=== PATIENT | male | born 1985 | race Caucasian/White ===

== ENCOUNTER 2016-07-22 12:21 | Emergency (ER) | payer OTHER ==
[~2016-07-22] VITALS: Ht 180.3 cm; Wt 109.3 kg
[~2016-07-22 12:21] MED LIST: ONDA4TAB7 SL; PRLSR20 PO
[2016-07-22 12:22] VITALS: Ht 180.3 cm; Wt 109.3 kg
[2016-07-22 13:55] LABS: BASO % 0.7 %; BASO ABS # 0.06 K/uL (0-0.2); COMPLETE YES; IG% 0.1 %; LYMPH % 25.1 %; LYMPH ABS # 2.23 K/uL (1.2-3.4); MEAN CELL VOLUME 89.8 fL (80-100); MEAN CORPUSCULAR HEMOGLOBIN 31.5 pg (25-34); MEAN CORPUSCULAR HGB CONC 35.1 g/dl (32-36); MEAN PLATELET VOLUME 11.1 fL (7.4-10.4); MONO % 6.3 %; NEUT % 66.8 %; PLATELET COUNT 193 K/uL (130-400); RED BLOOD COUNT 5.01 M/uL (4.7-6.1); WHITE BLOOD COUNT 8.87 K/uL (4.8-10.8)
--- NOTE | 2016-07-22 14:00 | EMERGENCY ROOM VISIT NOTE ---
History First contact with patient: 13:17 Chief Complaint: ARM PAIN Stated Complaint: LUMP IN ARM, DIZZY History of Present Illness The patient is a 31 year old male who presents to the Emergency Room with complaints of a lump on his left upper arm. The patient states yesterday, he noticed a lump in the left upper arm which is painful to touch. He states it is also painful to move and he has had numbness in his fingers intermittently. He states that the lump became bigger today. He initially thought it may be a pimple but states it is getting worse. There is no overlying redness or hardness. He rates the discomfort a 6/10. He denies any history of similar symptoms. He denies any past medical history or daily medications. Review of Systems A complete 10 point review of systems was reviewed with the patient with pertinent positives and negatives as per history of present illness. All else were negative. Past Medical/Surgical History Medical Problems: (1) Asthma (2) Bronchitis (3) Cough (4) Flank pain (5) Flu-like symptoms (6) Kidney stone (7) Pneumonia Family History Hypertension Social History Smoking Status: Current Every Day Smoker Alcohol Use: occasionally Drug Use: none Marital Status: single Housing Status: lives with significant other Occupation Status: employed Current/Historical Medications Scheduled Cephalexin Monohydrate (Keflex), 500 MG PO QID Allergies Coded Allergies: Sulfa Drugs (Verified Allergy, Unknown, 06/05/12) Physical Exam Vital Signs Date Time Temp Pulse Resp B/P Pulse Ox O2 Delivery O2 Flow Rate FiO2 07/22/16 16:08 36.8 94 20 127/67 97 07/22/16 16:07 94 20 127/67 97 Room Air 07/22/16 14:06 132/68 07/22/16 12:22 36.8 98 20 128/83 97 Room Air Physical Exam VITALS: Vitals are noted on the nurse's note and reviewed by myself. Vital signs stable. GENERAL: This is a 31-year-old male, in no acute distress, nondiaphoretic, well- developed well-nourished. SKIN: There is a tender, mobile nodule palpated in the left upper arm. HEENT: Normocephalic. PERRLA. EOMI. Nares patent. Mucous membranes moist. Neck is supple without nuchal rigidity or lymphadenopathy. LYMPH: No axillary lymphadenopathy. HEART: Regular rate and rhythm without murmurs gallops or rubs. LUNGS: Clear to auscultation bilaterally without wheezes, rales or rhonchi. NEURO: Patient was alert and oriented to person place and time. Medical Decision & Procedures ER Provider Diagnostic Interpretation: LEFT UPPER EXTREMITY ULTRASOUND CLINICAL HISTORY: Painful left upper arm lump. COMPARISON STUDY: No previous studies for comparison. FINDINGS: Sonography of the left upper arm at site of palpable lump revealed a 1.3 x 1.1 x 0.9 cm lymph node. This contains a fatty hilum. The cortex is mildly thickened. IMPRESSION: Mildly enlarged 1.3 cm left upper arm lymph node which reflects the palpable lump. This lymph node is likely reactive. Laboratory Results 07/22/16 13:35 Red Blood Count 5.01, Mean Corpuscular Volume 89.8, Mean Corpuscular Hemoglobin 31.5, Mean Corpuscular Hemoglobin Concent 35.1, Mean Platelet Volume 11.1, Neutrophils (%) (Auto) 66.8, Lymphocytes (%) (Auto) 25.1, Monocytes (%) (Auto) 6.3, Eosinophils (%) (Auto) 1.0, Basophils (%) (Auto) 0.7, Neutrophils # (Auto) 5.92, Lymphocytes # (Auto) 2.23, Monocytes # (Auto) 0.56, Eosinophils # (Auto) 0.09, Basophils # (Auto) 0.06 07/22/16 13:35 Test 07/22/16 13:35 White Blood Count 8.87 K/uL (4.8-10.8) Red Blood Count 5.01 M/uL (4.7-6.1) Hemoglobin 15.8 g/dL (14.0-18.0) Hematocrit 45.0 % (42-52) Mean Corpuscular Volume 89.8 fL (80-100) Mean Corpuscular Hemoglobin 31.5 pg (25-34) Mean Corpuscular Hemoglobin Concent 35.1 g/dl (32-36) Platelet Count 193 K/uL (130-400) Mean Platelet Volume 11.1 fL (7.4-10.4) Neutrophils (%) (Auto) 66.8 % Lymphocytes (%) (Auto) 25.1 % Monocytes (%) (Auto) 6.3 % Eosinophils (%) (Auto) 1.0 % Basophils (%) (Auto) 0.7 % Neutrophils # (Auto) 5.92 K/uL (1.4-6.5) Lymphocytes # (Auto) 2.23 K/uL (1.2-3.4) Monocytes # (Auto) 0.56 K/uL (0.11-0.59) Eosinophils # (Auto) 0.09 K/uL (0-0.5) Basophils # (Auto) 0.06 K/uL (0-0.2) RDW Standard Deviation 43.9 fL (36.4-46.3) RDW Coefficient of Variation 13.3 % (11.5-14.5) Immature Granulocyte % (Auto) 0.1 % Immature Granulocyte # (Auto) 0.01 K/uL (0.00-0.02) Anion Gap 7.0 mmol/L (3-11) Est Creatinine Clear Calc Drug Dose 173.8 ml/min Estimated GFR () 138.9 Estimated GFR (Non- 119.9 BUN/Creatinine Ratio 15.0 (10-20) Calcium Level 8.6 mg/dl (8.5-10.1) Medical Decision Differential diagnosis includes reactive lymphadenopathy, abscess, lipoma, among others. The patient is a 31-year-old male who presents today complaining of a painful lump of the left arm. Labs revealed no leukocytosis. An ultrasound was performed which showed lymphadenopathy which is likely reactive. The patient was informed of this. He will be placed on a short course of Keflex. Conservative measures were discussed. The patient was instructed to follow-up with a primary care provider for further evaluation. Based on the patient's presentation and work up, I feel the patient is stable for outpatient treatment. The patient was educated to return to the emergency department for any worsening of their current condition or new/concerning symptoms. He will follow up with his PCP. Impression Primary Impression: Lymphadenopathy Departure Information Dispostion Home / Self-Care Condition GOOD Prescriptions Cephalexin Monohydrate (Keflex) 500 Mg Cap 500 MG PO QID for 7 Days, #28 CAP Prov: Heike Elliott .ADRIANA 07/22/16 Referrals No Doctor, Assigned (PCP) Patient Instructions My [facility] Additional Instructions You were prescribed Keflex to be taken 4 times daily as prescribed. This is an antibiotic. All antibiotics have the potential to cause diarrhea. Stop this medication and contact a medical provider if you were to develop any significant adverse side effects including: wheezing, shortness of breath, passing out, vomiting, or a diffuse rash. Always take antibiotics as directed and COMPLETE the ENTIRE course regardless of the improvement of your symptoms. Your ultrasound showed a swollen lymph node of the left arm. You may use warm compresses over the area of pain. For pain control, you can use the following [id number] medicines (if >12 yo): - Regular strength (325mg/tab) Tylenol (acetaminophen) 2 tabs every 4-6 hours as needed. Do not exceed 12 tablets in a 24 hour period. Avoid taking more than 4 grams (4000 mg) of Tylenol per day. This includes any other sources of acetaminophen you may take on a regular basis. - Regular strength (200 mg/tab) Advil (ibuprofen) 1-2 tabs every 4-6 hours as needed. Do not exceed a dose of 3200 mg per day. This may also help with inflammation. Follow-up with her primary care provider within one week. Return to the emergency department with any worsening or new/concerning symptoms.
[2016-07-22 14:11] LABS: CREATININE 0.76 mg/dl (0.60-1.40); POTASSIUM 3.9 mmol/L (3.5-5.1)
[2016-07-22 14:21] LABS: CALCIUM 8.6 mg/dl (8.5-10.1)
--- NOTE | 2016-07-22 15:05 | DIAGNOSTIC IMAGING REPORT ---
LEFT UPPER EXTREMITY ULTRASOUND CLINICAL HISTORY: Painful left upper arm lump. COMPARISON STUDY: No previous studies for comparison. FINDINGS: Sonography of the left upper arm at site of palpable lump revealed a 1.3 x 1.1 x 0.9 cm lymph node. This contains a fatty hilum. The cortex is mildly thickened. IMPRESSION: Mildly enlarged 1.3 cm left upper arm lymph node which reflects the palpable lump. This lymph node is likely reactive. Electronically signed by: Alexei Langley M.D. 07/22/2016 3:04 PM Dictated Date/Time: 07/22/2016 2:58 PM
[2016-07-22] MEDS ORDERED: CEPH500C PO (15:40)
[2016-07-22 16:08] VITALS: BP 127/67; PULSE 94; TEMP 36.8; O2SAT 97
== END 2016-07-22 16:08 | disposition home or self-care (01) ==
LOC: C.EDB 12:22
DX: R59.1 Generalized enlarged lymph nodes (principal); J45.909 Unspecified asthma, uncomplicated; Z87.442 Personal history of urinary calculi; Z87.01 Personal history of pneumonia (recurrent); Z82.49 Family history of ischemic heart disease and other diseases of the circulatory system; F17.210 Nicotine dependence, cigarettes, uncomplicated

== ENCOUNTER 2017-07-09 15:24 | Emergency (ER) | payer BC ==
[~2017-07-09] VITALS: Ht 180.3 cm; Wt 112.5 kg
[2017-07-09 15:29] VITALS: TEMP 37; Ht 180.3 cm; Wt 112.5 kg
[2017-07-09] MEDS ORDERED: SODIUM CHLORIDE 0.9% 1000ML 1,000 ML IV STA (15:39)
[2017-07-09] MEDS ORDERED: PANTOprazole INJ 40 MG in SYRINGE 0 ML IV ONE (15:45)
[2017-07-09] MEDS ORDERED: OPTIRAY 320 IV PRN (15:45)
[2017-07-09 16:09] LABS: BASO % 0.6 %; BASO ABS # 0.05 K/uL (0-0.2); EOS % 2.2 %; EOS ABS # 0.18 K/uL (0-0.5); HEMATOCRIT 44.9 % (42-52); HEMOGLOBIN 16.1 g/dL (14.0-18.0); IG# 0.02 K/uL (0.00-0.02); LYMPH % 36.6 %; LYMPH ABS # 2.93 K/uL (1.2-3.4); MEAN CELL VOLUME 88.6 fL (80-100); MEAN CORPUSCULAR HEMOGLOBIN 31.8 pg (25-34); MEAN CORPUSCULAR HGB CONC 35.9 g/dl (32-36); MEAN PLATELET VOLUME 10.5 fL (7.4-10.4); MONO % 7.7 %; MONO ABS # 0.62 K/uL (0.11-0.59); NEUT % 52.7 %; NEUT ABS # 4.21 K/uL (1.4-6.5); PLATELET COUNT 200 K/uL (130-400); RED CELL DISTRIBUTION WIDTH CV 13.4 % (11.5-14.5); RED CELL DISTRIBUTION WIDTH SD 43.7 fL (36.4-46.3); WHITE BLOOD COUNT 8.01 K/uL (4.8-10.8)
[2017-07-09 16:31] LABS: ALBUMIN 3.7 gm/dl (3.4-5.0); ALKALINE PHOSPHATASE 91 U/L (45-117); ALT/SGPT 38 U/L (12-78); AST/SGOT 20 U/L (15-37); BLOOD UREA NITROGEN 14 mg/dl (7-18); CALCIUM 9.1 mg/dl (8.5-10.1); CARBON DIOXIDE 27 mmol/L (21-32); CREATININE 0.88 mg/dl (0.60-1.40); GLUCOSE 93 mg/dl (70-99); LIPASE 104 U/L (73-393); POTASSIUM 3.9 mmol/L (3.5-5.1); SODIUM 138 mmol/L (136-145); TOTAL PROTEIN 6.9 gm/dl (6.4-8.2)
--- NOTE | 2017-07-09 17:38 | DIAGNOSTIC IMAGING REPORT ---
CT ANGIO ABD/PELVIS WITH CONTRAST HISTORY: VOMITTING BLOOD TECHNIQUE: Multiaxial CT images of the abdomen and pelvis are performed following the use of intravenous contrast to evaluate the major arterial structures. Maximal intensity projection images were also obtained. COMPARISON STUDY: Abdomen and pelvis CT 01/29/2013. FINDINGS: The lung bases are essentially clear. No pneumoperitoneum. No pneumatosis. Tiny fat-containing umbilical hernia is again noted. The liver, gallbladder, spleen, adrenal glands, pancreas, and kidneys are unremarkable. No hydronephrosis. No retroperitoneal lymphadenopathy. The bladder is unremarkable. No bowel wall thickening or obstruction. A few colonic diverticula. Normal appendix. Abdominal aorta, iliac arteries, superior mesenteric artery, and inferior mesenteric artery are patent. The renal arteries are also patent. 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 2. No bowel wall thickening or obstruction. 3. Colonic diverticulosis. 4. Normal appendix. 5. Normal caliber abdominal aorta. 6. Stable tiny fat-containing umbilical hernia. Electronically signed by: Andrea Corado M.D. 07/09/2017 5:37 PM Dictated Date/Time: 07/09/2017 5:30 PM
[2017-07-09 19:07] VITALS: BP 138/92; PULSE 73; O2SAT 98
--- NOTE | 2017-07-09 19:28 | EMERGENCY ROOM VISIT NOTE ---
History Report prepared by Estrada: Jessica Walsh Under the Supervision of: Dr. Albania Howard D.O. First contact with patient: 15:31 Chief Complaint: VOMITING Stated Complaint: VOMITTING BLOOD History of Present Illness The patient is a 32 year old male who presents to the Emergency Room with complaints of persistent hematemesis starting last night. After he finished eating dinner, he started feeling lightheaded. He then vomited and saw that there were clots of red blood. He had a bowel movement today which was bright red. He is concerned that he has an ulcer. His brother has a history of ulcers. He is still feeling lightheaded and nauseous. He has left mid abdominal pain which is chronic for him. He has followed with his PCP for this. He has a history of IBS. He denies any back pain or bloating. He does get heartburn sometimes. He does smoke and admits to occasional alcohol use. He has not had a scope before. He states that he has been more stressed recently. Source of History: patient Onset: last night Position: abdomen Quality: other (hematemesis) Timing: other (persistent) Associated Symptoms: + nausea, + abdominal pain, + hematochezia, No back pain Note: Pt reports lightheadedness. Review of Systems See HPI for pertinent positives & negatives. A total of 10 systems reviewed and were otherwise negative. Past Medical & Surgical Medical Problems: (1) Asthma (2) Bronchitis (3) Cough (4) Flank pain (5) Flu-like symptoms (6) Kidney stone (7) Pneumonia Family History Hypertension Social History Smoking Status: Current Every Day Smoker Alcohol Use: occasionally Drug Use: none Marital Status: single Housing Status: lives with significant other Occupation Status: employed Current/Historical Medications Scheduled Omeprazole (Prilosec), 40 MG PO BID Allergies Coded Allergies: Sulfa Drugs (Verified Allergy, Unknown, 07/09/17) Physical Exam Vital Signs Date Time Temp Pulse Resp B/P (MAP) Pulse Ox O2 Delivery O2 Flow Rate FiO2 07/09/17 19:07 73 16 138/92 98 Room Air 07/09/17 17:36 73 20 150/89 99 Room Air 07/09/17 16:20 70 20 131/80 97 Room Air 07/09/17 15:29 37.0 95 20 149/106 96 Room Air Physical Exam GENERAL: alert, well appearing, well nourished, no distress, non-toxic EYE EXAM: normal conjunctiva, PERRL and EOM's grossly intact OROPHARYNX: no exudate, no erythema, lips, buccal mucosa, and tongue normal and mucous membranes are dry NECK: supple, no nuchal rigidity, no adenopathy, non-tender LUNGS: Clear to auscultation. Normal chest wall mechanics HEART: no murmurs, S1 normal and S2 normal ABDOMEN: abdomen soft, mild left mid abdominal tenderness to palpation, normo- active bowel sounds, no masses, no rebound or guarding. BACK: Back is symmetrical on inspection and there is no deformity, no midline tenderness, no CVA tenderness. RECTAL: Hemorrhoids. No obvious bleeding. No stool in rectal vault. Heme positive. SKIN: no rashes and no bruising UPPER EXTREMITIES: upper extremities are grossly normal. LOWER EXTREMITIES: No pitting edema. NEURO EXAM: Normal sensorium, cranial nerves II-XII grossly intact, normal speech, no gross weakness of arms, no gross weakness of legs. Medical Decision & Procedures ER Provider Diagnostic Interpretation: Radiology results have been interpreted by the radiologist and reviewed by me. CT ANGIO ABD/PELVIS WITH CONTRAST HISTORY: VOMITTING BLOOD TECHNIQUE: Multiaxial CT images of the abdomen and pelvis are performed following the use of intravenous contrast to evaluate the major arterial structures. Maximal intensity projection images were also obtained. COMPARISON STUDY: Abdomen and pelvis CT 01/29/2013. FINDINGS: The lung bases are essentially clear. No pneumoperitoneum. No pneumatosis. Tiny fat-containing umbilical hernia is again noted. The liver, gallbladder, spleen, adrenal glands, pancreas, and kidneys are unremarkable. No hydronephrosis. No retroperitoneal lymphadenopathy. The bladder is unremarkable. No bowel wall thickening or obstruction. A few colonic diverticula. Normal appendix. Abdominal aorta, iliac arteries, superior mesenteric artery, and inferior mesenteric artery are patent. The renal arteries are also patent. 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 2. No bowel wall thickening or obstruction. 3. Colonic diverticulosis. 4. Normal appendix. 5. Normal caliber abdominal aorta. 6. Stable tiny fat-containing umbilical hernia. Electronically signed by: Andrea Corado M.D. 07/09/2017 5:37 PM Dictated Date/Time: 07/09/2017 5:30 PM Laboratory Results 07/09/17 15:58 Red Blood Count 5.07, Mean Corpuscular Volume 88.6, Mean Corpuscular Hemoglobin 31.8, Mean Corpuscular Hemoglobin Concent 35.9, Mean Platelet Volume 10.5, Neutrophils (%) (Auto) 52.7, Lymphocytes (%) (Auto) 36.6, Monocytes (%) (Auto) 7.7, Eosinophils (%) (Auto) 2.2, Basophils (%) (Auto) 0.6, Neutrophils # (Auto) 4.21, Lymphocytes # (Auto) 2.93, Monocytes # (Auto) 0.62, Eosinophils # (Auto) 0.18, Basophils # (Auto) 0.05 07/09/17 15:58 Test 07/09/17 15:58 07/09/17 18:58 White Blood Count 8.01 K/uL (4.8-10.8) Red Blood Count 5.07 M/uL (4.7-6.1) Hemoglobin 16.1 g/dL (14.0-18.0) Hematocrit 44.9 % (42-52) Mean Corpuscular Volume 88.6 fL (80-100) Mean Corpuscular Hemoglobin 31.8 pg (25-34) Mean Corpuscular Hemoglobin Concent 35.9 g/dl (32-36) Platelet Count 200 K/uL (130-400) Mean Platelet Volume 10.5 fL (7.4-10.4) Neutrophils (%) (Auto) 52.7 % Lymphocytes (%) (Auto) 36.6 % Monocytes (%) (Auto) 7.7 % Eosinophils (%) (Auto) 2.2 % Basophils (%) (Auto) 0.6 % Neutrophils # (Auto) 4.21 K/uL (1.4-6.5) Lymphocytes # (Auto) 2.93 K/uL (1.2-3.4) Monocytes # (Auto) 0.62 K/uL (0.11-0.59) Eosinophils # (Auto) 0.18 K/uL (0-0.5) Basophils # (Auto) 0.05 K/uL (0-0.2) RDW Standard Deviation 43.7 fL (36.4-46.3) RDW Coefficient of Variation 13.4 % (11.5-14.5) Immature Granulocyte % (Auto) 0.2 % Immature Granulocyte # (Auto) 0.02 K/uL (0.00-0.02) Prothrombin Time 10.3 SECONDS (9.0-12.0) Prothromb Time International Ratio 1.0 (0.9-1.1) Anion Gap 5.0 mmol/L (3-11) Est Creatinine Clear Calc Drug Dose 150.8 ml/min Estimated GFR () 129.9 Estimated GFR (Non- 112.1 BUN/Creatinine Ratio 15.7 (10-20) Calcium Level 9.1 mg/dl (8.5-10.1) Magnesium Level 2.0 mg/dl (1.8-2.4) Total Bilirubin 0.9 mg/dl (0.2-1) Aspartate Amino Transf (AST/SGOT) 20 U/L (15-37) Alanine Aminotransferase (ALT/SGPT) 38 U/L (12-78) Alkaline Phosphatase 91 U/L (45-117) Troponin I < 0.015 ng/ml (0-0.045) Total Protein 6.9 gm/dl (6.4-8.2) Albumin 3.7 gm/dl (3.4-5.0) Globulin 3.2 gm/dl (2.5-4.0) Albumin/Globulin Ratio 1.2 (0.9-2) Lipase 104 U/L (73-393) Bedside Lactic Acid Venous 0.44 mmol/L (0.90-1.70) Laboratory results per my review. Medications Administered Medications (Trade) Dose Ordered Sig/Cori Route Start Time Stop Time Status Last Admin Dose Admin Sodium Chloride 1,000 ml @ 999 mls/hr Q1H1M STAT IV 07/09/17 15:39 07/09/17 16:39 DC 18 16:18 999 MLS/HR Pantoprazole Sodium 40 mg/ Syringe 10 ml @ 5 mls/min NOW ONCE IV 07/09/17 15:45 18 16:16 DC 07/09/17 16:18 5 MLS/MIN ECG Per My Interpretation Indication: other (lightheadedness) Rate (beats per minute): 79 Rhythm: sinus rhythm Findings: no acute ischemic change, no ectopy, other (normal axis, normal intervals) Comparison ECG Date: 16-Jul-2007 Change: no significant change ED Course 1533: The patient was evaluated in room C4. A complete history and physical exam was performed. 1539: Sodium Chloride 1000 ml @ 999 mls/hr IV. 1545: Pantoprazole Sodium 40 mg/Syringe 10 ml @ 5 mls/min IV. 1743: I reevaluated the patient. He feels better and is requesting food. I updated him on the results. He reports that he had a CT 6-8 weeks ago as an outpatient. 185: I discussed the patient's case with Dr. Little, [facility] gastroenterology. He recommends speaking with Dr. Estevez. He could scope the patient tomorrow or next week. 1909: I discussed the patient's case with Dr. Estevez, [facility] vascular surgery. He recommends repeat imaging in a year. States this is unlikely to be acute, and more likely mild compression from the arcuate ligament. 1912: I reevaluated the patient. He would like to go home and get scoped next week. I discussed the findings and the treatment plan with the patient. He verbalizes agreement and understanding. He was discharged home. 1922: I spoke with Dr. Little of GI again. He recommends 40 mg Omeprazole BID. His office will contact the patient to schedule the scope. Medical Decision Differential diagnosis includes etiologies such as diverticulosis, AVM, coagulopathy, colitis, inflammatory bowel disease, malignancy, Rebecca-Massey tear, esophagitis, peptic ulcer disease, variceal bleed, gastritis, epistaxis, fissure, hemorrhoids, as well as others were entertained. Patient well-appearing here despite complaints and history. Patient heme dynamically stable throughout. H&H reassuring. Patient heme positive on rectal exam, however no recurrent hematemesis or rectal bleeding noted here. Discussed case with both GI as well as vascular surgery given abnormal finding on CAT scan. No acute vascular emergency. Discussed close follow-up for endoscopy with GI. Patient would prefer to wait and have this done next week. Patient to be started on a PPI twice daily until otherwise advised by GI. Discussed with the patient a bland diet and avoidance of acidic foods which could continue to irritate his stomach. Discussed symptoms to watch and return for. Encouraged the patient to quit smoking. All questions answered bedside, patient verbalized understanding was agreeable with plan. Patient well- appearing at time of discharge and ablate with a steady gait and tolerating sips of p.o. at bedside. I do not suspect occult perforation, mesenteric ischemia, bacteremia/sepsis, or cardiac origin patient symptoms. Medication Reconcilliation Current Medication List: was personally reviewed by me Blood Pressure Screening Patient's blood pressure: Elevated blood pressure Blood pressure disposition: Elevated BP felt to be situational Consults Time Called: 1852 Consulting Physician: Dr. Little, [facility] gastroenterology Returned Call: [phone] I discussed the patient's case with him. He recommends speaking with Dr. Estevez. He could scope the patient tomorrow or next week. Additional Consults: Time Called: 1899 Consulted Physician: Dr. Estevez, [facility] vascular surgery Returned Call: 1909 Additional Comments: I discussed the patient's case with him. He recommends repeat imaging in a year. Impression Primary Impression: GI (gastrointestinal bleed) Additional Impressions: Abdominal pain Vomiting Tobacco abuse Scribe Attestation The scribe's documentation has been prepared under my direction and personally reviewed by me in its entirety. I confirm that the note above accurately reflects all work, treatment, procedures, and medical decision making performed by me. Departure Information Dispostion Home / Self-Care Prescriptions Omeprazole (PRILOSEC) 40 Mg Cap 40 MG PO BID for 30 Days, #60 CAP Prov: Albania Howard, DO 07/09/17 Referrals No Doctor, Assigned (PCP) Patient Instructions My [facility] Additional Instructions Please follow-up with the GI doctor. Please take the stomach medicine as prescribed every day. Please avoid acid in your diet including alcohol, coffee , soda, tomato based products, and citrus fruits. Please consider quitting smoking. If you have any recurrent episodes of vomiting, noticed blood in your sputum, have recurrent blood with a bowel movement, develop dizziness, chest pain, trouble breathing, or bleeding from any other source, please return to the ER immediately. Please consider starting a daily stool softener to help prevent hard stools which lead to straining and hemorrhoidal bleeding. Problem Qualifiers Primary Impression: GI (gastrointestinal bleed) GI bleed type/associated pathology: unspecified gastrointestinal hemorrhage type Qualified Codes: K92.2 - Gastrointestinal hemorrhage, unspecified Additional Impressions: Abdominal pain Abdominal location: unspecified location Qualified Codes: R10.9 - Unspecified abdominal pain Vomiting Vomiting type: unspecified Vomiting Intractability: non-intractable Nausea presence: with nausea Qualified Codes: R11.2 - Nausea with vomiting, unspecified
[2017-07-09] MEDS ORDERED: OMEP40CA41 PO (19:29)
== END 2017-07-09 19:33 | disposition home or self-care (01) ==
LOC: C.EDB 15:25 → C.EDC 19:33
DX: K92.2 Gastrointestinal hemorrhage, unspecified (principal); R10.12 Left upper quadrant pain; R10.32 Left lower quadrant pain; R11.2 Nausea with vomiting, unspecified; R42 Dizziness and giddiness; F17.200 Nicotine dependence, unspecified, uncomplicated; J45.909 Unspecified asthma, uncomplicated; Z88.2 Allergy status to sulfonamides